=== PATIENT | female | born 1965 | race American Indian/Alaskan Native ===

== ENCOUNTER 2018-08-01 10:27 | Day surgery (SDC) | payer OTHER ==
[2018-08-01] MEDS ORDERED: Lidocaine 2% Inj (20ml) ONE (12:05)
[2018-08-01] MEDS ORDERED: Iodixanol 320 MG/ML 100 ML BOTTLE IV ONE (12:05)
[2018-08-01] MEDS ORDERED: Iohexol 350mgl/ml 50 ML ONE (12:05)
[2018-08-01] MEDS ORDERED: Nitroglycerin 50mg in D5W 50 MG/250 ML BOTTLE IV ONE (12:05)
[2018-08-01] MEDS ORDERED: Verapamil 2 ML ONE (12:05)
[2018-08-01] MEDS ORDERED: Iodixanol 320 MG/ML 200 ML BOTTLE IV ONE (12:05)
[2018-08-01] MEDS ORDERED: Midazolam 2 MG/2 ML VIAL ONE (12:25)
[2018-08-01 12:55] VITALS: BMI 37.7
[2018-08-01] MEDS ORDERED: Sodium Chloride 0.9% 1,000 ML IV SCH (13:00)
[2018-08-01 14:52] VITALS: TEMP 98.5
[2018-08-01] MEDS ORDERED: Bacitracin Ointment 30 GM TUBE TOP ONE (15:02)
[2018-08-01] MEDS ORDERED: Bacitracin 500 Units/gm Oint Foilpak UD ONE (15:08)
[2018-08-01] MEDS ORDERED: Bacitracin 500 Units/gm Oint Foilpak UD TOP ONE (15:15)
[2018-08-01 17:36] VITALS: BP 138/82; RESP 18
--- NOTE | 2018-08-01 18:10 | CARDCATH ---
PROCEDURE DATE: 08/01/2018 INDICATIONS: Ms. Baez is a 52-year-old female who presented to [facility] with symptoms of URI and new onset dyspnea on exertion. She had dynamic EKG changes with hyperacute T waves in anterior leads and subsequently underwent a stress test showing anteroseptal ischemia. Cardiac catheterization was subsequently arranged for which the patient was transferred over to [facility] from [place]. PROCEDURE PERFORMED: Left heart catheterization with selective left and right coronary angiogram, left ventriculogram, 6-Tuvaluan right radial arterial access, and wristband for hemostasis. TECHNIQUES OF PROCEDURE: After obtaining informed consent, the patient was brought to the cardiac cath suite in post-absorptive and nonsedated state. The patient was prepped and draped in the usual sterile fashion. A 2% lidocaine was used for infiltration of anesthesia. Using modified Seldinger technique, a 6-Tuvaluan sheath was introduced into the right radial artery and subsequently over J-wire. JR4 and JL4 diagnostic catheters were used to engage the right and left coronary system. Angiograms were obtained views. Subsequently, a pigtail catheter was advanced across the aortic valve to the LV and LV gram was obtained in the RA view. Hemodynamics were obtained and pullback gradients were noted. Left ventricular ejection fraction is 50-59%. Left ventricular end-diastolic pressure was 70 mmHg. There was no gradient . Coronary left main large-sized vessel bifurcates into LAD and left circumflex coronary artery. LAD is a large-sized vessel gives off diagonal branches, free of any obstructive disease. Septal dressmaker garment fitter has a moderate 50% stenosis. Left circumflex runs in the AV groove, gives off two small-sized obtuse marginal branches. RCA is a large-sized vessel gives off the right PDA and PLV branches, free of any obstructive disease. IMPRESSION: Nonobstructive coronary artery disease, moderate septal dressmaker garment fitter disease, and normal ejection fraction. RECOMMENDATIONS: Continue aggressive medical management as per modification. The patient can be transferred back to [place] in few hours and follow up with Dr. Wilson and Dr. Olivia Mckeon. The patient is to have aggressive therapy with aspirin, statins, beta-blockers plus/minus MORELIA inhibitors. Jaguar Wilson MD cc: Olivia Mckeon MD [facility] # [id number]
[2018-08-01 18:33] VITALS: PULSE 98
== END 2018-08-01 19:18 | disposition short-term general hospital (02) ==
LOC: CATH 10:27 → 2RSO 13:14 → CATH 19:18
PROVIDERS: ATTEND Internal Medicine Interventional Cardiology
DX: I25.10 Atherosclerotic heart disease of native coronary artery without angina pectoris (principal); I10 Essential (primary) hypertension; E11.9 Type 2 diabetes mellitus without complications
CPT/HCPCS: 93458; 99152; C1769; C1894; J1644 ×2; J2250; J3010; J7030; Q9966; Q9967 ×2